=== PATIENT | female | born 1970 | race Caucasian/White ===

== ENCOUNTER 2017-05-11 14:06 | Emergency (ER) | payer BC, OTHER ==
[2017-05-11 14:20] VITALS: BP 162/82
[2017-05-11] MEDS ORDERED: Sodium Chloride 0.9% 10 ML Syringe FLUSH PRN (14:31)
--- NOTE | 2017-05-11 14:33 | EDM.PDOC ---
ED HPI GENERAL MEDICAL PROBLEM - General Chief Complaint: Chest Pain Stated Complaint: CHEST PAIN Time Seen by Provider: 05/11/17 14:12 Source of Information: Reports: Patient History Limitations: Reports: No Limitations - History of Present Illness INITIAL COMMENTS - FREE TEXT/NARRATIVE: The patient presents with chest pain. This stared this morning at 0730. She was not doing anything strenuous. The pain has been there all day. It is a dull ache in the center of her chest. She has some nausea now but no shortness of breath. She has no fever, chills, cough, abdominal pain or vomiting. She has no pain or swelling in her legs. She does smoke but she has no history of diabetes, hypertension or hypercholesterolemia. She does have a family history of chest pain. Onset: Gradual Duration: Hour(s): (since 7:30am) Location: Reports: Chest Quality: Reports: Ache Severity: Mild Improves with: Reports: None Worsens with: Reports: None Context: Reports: Activity Associated Symptoms: Reports: Chest Pain. Denies: Confusion, Cough, Fever/ Chills, Headaches, Nausea/Vomiting, Shortness of Breath Chest Pain Score (Numeric/FACES): 5 - Related Data Allergies Allergy/AdvReac Type Severity Reaction Status Date / Time No Known Allergies Allergy Verified 05/11/17 14:17 Home Meds: Home Meds Diclofenac Sodium [Voltaren] 75 mg PO BID 01/19/15 [History] Multivitamin with Minerals [Multiple Vitamin] 1 tab PO DAILY 01/19/15 [History] Ondansetron [Zofran ODT] 4 mg PO Q12H PRN #8 tab.dis 01/19/15 [Rx] Ranitidine [Zantac] 150 mg PO BID #60 tab 01/19/15 [Rx] Past Medical History - Past Surgical History Other Female Surgeries/Procedures: uterine ablation Social & Family History - Tobacco Use Smoking Status *Q: Unknown Ever Smoked Years of Tobacco use: 20 Packs/Tins Daily: 0.5 - Recreational Drug Use Recreational Drug Use: No ED ROS GENERAL - Review of Systems Review Of Systems: See Below Constitutional: Reports: No Symptoms HEENT: Reports: No Symptoms Respiratory: Reports: No Symptoms Cardiovascular: Reports: Chest Pain Endocrine: Reports: No Symptoms GI/Abdominal: Reports: Nausea. Denies: Abdominal Pain, Vomiting : Reports: No Symptoms Musculoskeletal: Reports: No Symptoms Skin: Reports: No Symptoms Neurological: Reports: No Symptoms ED EXAM, GENERAL - Physical Exam Exam: See Below Exam Limited By: No Limitations General Appearance: Alert, No Apparent Distress Ears: Normal External Exam Nose: Normal Inspection Head: Atraumatic, Normocephalic Neck: Normal Inspection Respiratory/Chest: No Respiratory Distress, Lungs Clear, Normal Breath Sounds Cardiovascular: Regular Rate, Rhythm, No Edema, No Murmur GI/Abdominal: Soft, Non-Tender, No Organomegaly, No Mass Extremities: Normal Inspection Neurological: Alert, Oriented, No Motor/Sensory Deficits Course - Vital Signs Last Recorded V/S: Last Vital Signs Temp 98.8 F 05/11/17 14:17 Pulse 116 H 05/11/17 14:17 Resp 18 05/11/17 14:17 BP 162/82 H 05/11/17 14:17 Pulse Ox 100 05/11/17 14:17 - Orders/Labs/Meds Orders: Active Orders 24 hr Category Date Time Status Cardiac Monitoring [RC] . DIRECTED Care 05/11/17 14:31 Active EKG Documentation Completion [RC] ASDIRECTED Care 05/11/17 16:53 Active EKG Documentation Completion [RC] STAT Care 05/11/17 14:31 Active Peripheral IV Care [RC] . DIRECTED Care 05/11/17 14:31 Active Chest 1V Frontal [CR] Stat Exams 05/11/17 14:31 Taken Sodium Chloride 0.9% [Saline Flush] Med 05/11/17 14:31 Active 10 ml FLUSH ASDIRECTED PRN EKG 12 Lead [EK] Stat Ther 05/11/17 16:52 Ordered Medication Orders Sodium Chloride (Saline Flush) 10 ml FLUSH ASDIRECTED PRN PRN Reason: Keep Vein Open Labs: Laboratory Tests 05/11/17 05/11/17 05/11/17 Range/Units 15:15 15:15 15:15 WBC 11.71 H (3.98-10.04) K/mm3 RBC 5.09 (3.98-5.22) M/mm3 Hgb 14.2 (11.2-15.7) gm/L Hct 41.4 (34.1-44.9) % MCV 81.3 (79.4-94.8) fl MCH 27.9 (25.6-32.2) pg MCHC 34.3 (32.2-35.5) g/dl RDW Std Deviation 41.3 (36.4-46.3) fL Plt Count 315 (182-369) K/mm3 MPV 9.7 (9.4-12.3) fl Neut % (Auto) 76.1 H (34.0-71.1) % Lymph % (Auto) 15.3 L (19.3-51.7) % [place] % (Auto) 7.4 (4.7-12.5) % Eos % (Auto) 0.6 L (0.7-5.8) Baso % (Auto) 0.3 (0.1-1.2) % Neut # (Auto) 8.92 H (1.56-6.13) K/mm3 Lymph # (Auto) 1.79 (1.18-3.74) K/mm3 [place] # (Auto) 0.87 H (0.24-0.36) K/mm3 Eos # (Auto) 0.07 (0.04-0.36) K/mm3 Baso # (Auto) 0.03 (0.01-0.08) K/mm3 D-Dimer, Quantitative 0.32 (0.19-0.59) mg/L Sodium 143 (136-145) mEq/L Potassium 4.3 (3.5-5.1) mEq/L Chloride 107 (98-107) mEq/L Carbon Dioxide 26 (21-32) mEq/L Anion Gap 14.3 (5-15) BUN 11 (7-18) mg/dL Creatinine 0.8 (0.55-1.02) mg/dL Est Cr Clr Drug Dosing 66.31 mL/min Estimated GFR (MDRD) > 60 (>60) mL/min BUN/Creatinine Ratio 13.8 L (14-18) Glucose 107 H (74-106) mg/dL Calcium 9.2 (8.5-10.1) mg/dL Total Bilirubin 0.3 (0.2-1.0) mg/dL AST 17 (15-37) U/L ALT 36 (14-59) U/L Alkaline Phosphatase 99 (46-116) U/L Troponin I < 0.017 (0.00-0.056) ng/mL Total Protein 6.9 (6.4-8.2) g/dl Albumin 3.4 (3.4-5.0) g/dl Globulin 3.5 gm/dL Albumin/Globulin Ratio 1.0 (1-2) 05/11/17 Range/Units 17:23 WBC (3.98-10.04) K/mm3 RBC (3.98-5.22) M/mm3 Hgb (11.2-15.7) gm/L Hct (34.1-44.9) % MCV (79.4-94.8) fl MCH (25.6-32.2) pg MCHC (32.2-35.5) g/dl RDW Std Deviation (36.4-46.3) fL Plt Count (182-369) K/mm3 MPV (9.4-12.3) fl Neut % (Auto) (34.0-71.1) % Lymph % (Auto) (19.3-51.7) % [place] % (Auto) (4.7-12.5) % Eos % (Auto) (0.7-5.8) Baso % (Auto) (0.1-1.2) % Neut # (Auto) (1.56-6.13) K/mm3 Lymph # (Auto) (1.18-3.74) K/mm3 [place] # (Auto) (0.24-0.36) K/mm3 Eos # (Auto) (0.04-0.36) K/mm3 Baso # (Auto) (0.01-0.08) K/mm3 D-Dimer, Quantitative (0.19-0.59) mg/L Sodium (136-145) mEq/L Potassium (3.5-5.1) mEq/L Chloride (98-107) mEq/L Carbon Dioxide (21-32) mEq/L Anion Gap (5-15) BUN (7-18) mg/dL Creatinine (0.55-1.02) mg/dL Est Cr Clr Drug Dosing mL/min Estimated GFR (MDRD) (>60) mL/min BUN/Creatinine Ratio (14-18) Glucose (74-106) mg/dL Calcium (8.5-10.1) mg/dL Total Bilirubin (0.2-1.0) mg/dL AST (15-37) U/L ALT (14-59) U/L Alkaline Phosphatase (46-116) U/L Troponin I < 0.017 (0.00-0.056) ng/mL Total Protein (6.4-8.2) g/dl Albumin (3.4-5.0) g/dl Globulin gm/dL Albumin/Globulin Ratio (1-2) Meds: Medications Generic Name Dose Route Start Last Admin Trade Name Freq PRN Reason Stop Dose Admin Sodium Chloride 10 ml 05/11/17 14:31 Saline Flush FLUSH ASDIRECTED PRN Keep Vein Open Discontinued Medications Generic Name Dose Route Start Last Admin Trade Name Freq PRN Reason Stop Dose Admin Acetaminophen 975 mg 05/11/17 15:19 05/11/17 15:25 Tylenol PO 05/11/17 15:20 975 mg NOW ONE Administration Al Hydroxide/Mg Hydroxide 30 0 ml 05/11/17 16:16 05/11/17 16:32 ml/ Lidocaine HCl 15 ml PO 05/11/17 16:17 45 ml ONETIME ONE Administration Ondansetron HCl 4 mg 05/11/17 16:15 05/11/17 16:22 Zofran Odt PO 05/11/17 16:16 4 mg ONETIME ONE Administration - Re-Assessments/Exams Free Text/Narrative Re-Assessment/Exam: 05/11/17 14:35 I ordered an IV saline lock, CXR, EKG and labs. The patient did take a baby aspirin today. 05/11/17 17:10 Her EKG shows a NSR with no acute changes. Her CXR looks good. Her WBC was slightly elevated at 11.71. Her D-dimer was negative. Her CMP looks good. Her troponin is negative. She feels a little better but she has some nausea and mild chest pain. I wonder if this is GI so I ordered a GI cocktail and some zofran 4mg ODT. I have ordered a repeat EKG that shows a NSR with no acute changes. I will also get a repeat troponin. 05/11/17 18:12 The repeat troponin was negative. I do not think this is cardiac. I will have her follow up with a provider in [facility] and have a stress test scheduled. Departure - Departure Time of Disposition: 18:15 Disposition: Home, Self-Care 01 Condition: Good Clinical Impression: Atypical chest pain Referrals: PCP,None [Primary Care Provider] - Esme Arias MD [Physician] - 3 Days Forms: ED Department Discharge Additional Instructions: Rest tonight. Take tylenol or motrin for pain. Please return if you are worse. Follow up with Dr Arias at our clinic or any other provider in [facility] for follow up. - My Orders Last 24 Hours: My Active Orders 05/11/17 14:31 Cardiac Monitoring [RC] . DIRECTED EKG Documentation Completion [RC] STAT Peripheral IV Care [RC] . DIRECTED Chest 1V Frontal [CR] Stat Sodium Chloride 0.9% [Saline Flush] 10 ml FLUSH ASDIRECTED PRN 05/11/17 16:52 EKG 12 Lead [EK] Stat 05/11/17 16:53 EKG Documentation Completion [RC] ASDIRECTED - Assessment/Plan Last 24 Hours: My Active Orders 05/11/17 14:31 Cardiac Monitoring [RC] . DIRECTED EKG Documentation Completion [RC] STAT Peripheral IV Care [RC] . DIRECTED Chest 1V Frontal [CR] Stat Sodium Chloride 0.9% [Saline Flush] 10 ml FLUSH ASDIRECTED PRN 05/11/17 16:52 EKG 12 Lead [EK] Stat 05/11/17 16:53 EKG Documentation Completion [RC] ASDIRECTED
[2017-05-11] MEDS ORDERED: Acetaminophen 325 MG Tab PO ONE (15:19)
[2017-05-11] MEDS ORDERED: Ondansetron 4 MG Tab.DIS PO ONE (16:15)
[2017-05-11] MEDS ORDERED: Alum Hydrox/Mag Hydrox/Simeth 30 ML, Lidocaine 2% 15 ML PO ONE ×2 (16:16)
--- NOTE | 2017-05-12 08:42 | CR ---
Chest: Portable view of the chest was obtained. Comparison: Prior chest x-ray of 01/19/15. Heart size is enlarged but felt accentuated from portable technique. Upper mediastinum is within normal limits. Lungs are clear. Bony structures are grossly intact. Impression: 1. Nothing acute is identified on portable chest x-ray. Diagnostic code #1
== END 2017-05-11 18:23 | disposition home or self-care (01) ==
LOC: JD.ED 14:06
DX: R07.89 Other chest pain (principal); F17.210 Nicotine dependence, cigarettes, uncomplicated
CPT/HCPCS: 36415; 71045; 80053; 84484; 85025; 85379; 93005; 99285; A9270; 93010

== ENCOUNTER 2017-12-24 12:07 | Emergency (ER) | payer BC ==
--- NOTE | 2017-12-24 13:56 | EDM.PDOC ---
ED HPI GENERAL MEDICAL PROBLEM - General Chief Complaint: Neurological Problem Stated Complaint: DIZZYNESS Time Seen by Provider: 12/24/17 13:35 Source of Information: Reports: Patient History Limitations: Reports: No Limitations - History of Present Illness INITIAL COMMENTS - FREE TEXT/NARRATIVE: 47-year-old female with no significant past medical history presenting with a chief complaint of dizziness, nausea and fatigue. Patient states she noted onset of the symptoms yesterday in the evening after she went home from work. She describes feeling dizzy but is unable to further qualify this as the room spinning around her or is feeling like she is going to pass out. She had no associated chest pain shortness of breath headache or visual changes. Today upon awakening the patient still felt generally not well with some nausea and intermittent "dizziness". Patient has no history of CVA or TIA. No significant cardiac history. Denies any associated palpitations. Of note she did say that coworker had almost identical symptoms today. Associated Symptoms: Reports: No Other Symptoms - Related Data Allergies Allergy/AdvReac Type Severity Reaction Status Date / Time levofloxacin [From Levaquin] Allergy Rash Verified 12/24/17 12:19 metronidazole [From Flagyl] Allergy Rash Verified 12/24/17 12:19 Home Meds: Home Meds Multivitamin with Minerals [Multiple Vitamin] 1 tab PO DAILY 01/19/15 [History] Omeprazole 20 mg PO DAILY 12/24/17 [History] Past Medical History - Past Health History Medical/Surgical History: Denies Medical/Surgical History Gastrointestinal History: Reports: Diverticulosis, GERD - Past Surgical History GI Surgical History: Reports: Colonoscopy Female Surgical History: Reports: Section, Tubal Ligation, Other ( See Below) Other Female Surgeries/Procedures: uterine ablation Social & Family History - Tobacco Use Smoking Status *Q: Former Smoker Used Tobacco, but Quit: Yes Month/Year Tobacco Last Used: 2014 - Caffeine Use Caffeine Use: Reports: None - Recreational Drug Use Recreational Drug Use: No ED ROS GENERAL - Review of Systems Review Of Systems: See Below Constitutional: Reports: No Symptoms HEENT: Reports: No Symptoms Respiratory: Reports: No Symptoms Cardiovascular: Reports: No Symptoms Endocrine: Reports: No Symptoms GI/Abdominal: Reports: Nausea : Reports: No Symptoms Musculoskeletal: Reports: No Symptoms Skin: Reports: No Symptoms Neurological: Reports: Dizziness Psychiatric: Reports: No Symptoms Hematologic/Lymphatic: Reports: No Symptoms Immunologic: Reports: No Symptoms ED EXAM, NEURO - Physical Exam Exam: See Below Exam Limited By: No Limitations General Appearance: Alert, No Apparent Distress Ears: Normal External Exam, Hearing Grossly Normal, Normal TMs Nose: Normal Inspection, Normal Mucosa, No Blood Throat/Mouth: Normal Inspection, Normal Lips, Normal Oropharynx, Normal Voice, No Airway Compromise Head Exam: Atraumatic, Normocephalic Neck: Normal Inspection, Supple, Non-Tender, Full Range of Motion Respiratory/Chest: No Respiratory Distress, Lungs Clear, Normal Breath Sounds, No Accessory Muscle Use, Chest Non-Tender Cardiovascular: Normal Peripheral Pulses, Regular Rate, Rhythm, No Edema, No Gallop, No JVD, No Murmur, No Rub GI/Abdominal: Normal Bowel Sounds, Soft, Non-Tender, No Organomegaly, No Distention Neurological: Alert, Normal Mood/Affect, Normal Dorsiflexion, CN II-XII Intact, Normal Plantar Flexion, Normal Gait, Normal Reflexes, No Motor/Sensory Deficits , Oriented x 3, Other (Head impulse test: loss of fixation with corrective saccades when head turned to the right) Back Exam: Normal Inspection, Full Range of Motion, NT Extremities: Normal Inspection, Normal Range of Motion, Non-Tender, No Pedal Edema, Normal Capillary Refill Psychiatric: Normal Affect, Normal Mood Skin Exam: Warm, Dry, Intact, Normal Color, No Rash Course - Vital Signs Last Recorded V/S: Last Vital Signs Temp 36.7 C 12/24/17 16:21 Pulse 78 12/24/17 16:21 Resp 20 12/24/17 16:21 BP 125/76 12/24/17 16:21 Pulse Ox 98 12/24/17 12:16 - Orders/Labs/Meds Labs: Laboratory Tests 12/24/17 12/24/17 Range/Units 13:05 13:05 WBC 8.79 (3.98-10.04) K/mm3 RBC 5.23 H (3.98-5.22) M/mm3 Hgb 14.4 (11.2-15.7) gm/L Hct 42.4 (34.1-44.9) % MCV 81.1 (79.4-94.8) fl MCH 27.5 (25.6-32.2) pg MCHC 34.0 (32.2-35.5) g/dl RDW Std Deviation 41.9 (36.4-46.3) fL Plt Count 302 (182-369) K/mm3 MPV 9.6 (9.4-12.3) fl Neut % (Auto) 75.0 H (34.0-71.1) % Lymph % (Auto) 17.0 L (19.3-51.7) % [place] % (Auto) 7.4 (4.7-12.5) % Eos % (Auto) 0.3 L (0.7-5.8) Baso % (Auto) 0.2 (0.1-1.2) % Neut # (Auto) 6.59 H (1.56-6.13) K/mm3 Lymph # (Auto) 1.49 (1.18-3.74) K/mm3 [place] # (Auto) 0.65 H (0.24-0.36) K/mm3 Eos # (Auto) 0.03 L (0.04-0.36) K/mm3 Baso # (Auto) 0.02 (0.01-0.08) K/mm3 Sodium 140 (136-145) mEq/L Potassium 3.8 (3.5-5.1) mEq/L Chloride 107 (98-107) mEq/L Carbon Dioxide 25 (21-32) mEq/L Anion Gap 11.8 (5-15) BUN 7 (7-18) mg/dL Creatinine 0.8 (0.55-1.02) mg/dL Est Cr Clr Drug Dosing 65.60 mL/min Estimated GFR (MDRD) > 60 (>60) mL/min BUN/Creatinine Ratio 8.8 L (14-18) Glucose 103 (74-106) mg/dL Calcium 8.7 (8.5-10.1) mg/dL Magnesium 1.9 (1.8-2.4) mg/dl Total Bilirubin 0.6 (0.2-1.0) mg/dL AST 19 (15-37) U/L ALT 28 (14-59) U/L Alkaline Phosphatase 105 (46-116) U/L Troponin I < 0.017 (0.00-0.056) ng/mL C-Reactive Protein 1.6 H* (<1.0) mg/dL Total Protein 7.1 (6.4-8.2) g/dl Albumin 3.4 (3.4-5.0) g/dl Globulin 3.7 gm/dL Albumin/Globulin Ratio 0.9 L (1-2) - Re-Assessments/Exams Free Text/Narrative Re-Assessment/Exam: 12/24/17 22:48 Differential diagnosis viral syndrome, dehydration, likely abnormality, CVA highly unlikely, TIA unlikely, benign positional peripheral vertigo 47-year-old female presenting with chief complaints of fatigue malaise dizziness and nausea. Patient's symptoms started yesterday evening. She woke this morning continued to have dizziness and was tired and nauseous. Coworkers had similar symptoms as well. Patient denies any symptoms that are suggestive of CVAs his visual changes had a care focal neurologic symptoms. I have low suspicion for a posterior circulation stroke with a HINTS exam that is not suggestive of such. EKG is normal no sign of arrhythmia or ischemia. Labs are normal as well. At this time patient is safe for discharge home. She is given strict return precautions for any signs or symptoms suggestive of ACS or stroke. Patient voices her understanding and all questions were answered. Departure - Departure Time of Disposition: 16:07 Disposition: Home, Self-Care 01 Condition: Fair Clinical Impression: Dizziness - Discharge Information *PRESCRIPTION DRUG MONITORING PROGRAM REVIEWED*: Not Applicable *COPY OF PRESCRIPTION DRUG MONITORING REPORT IN PATIENT JULIANNA: Not Applicable Instructions: Dizziness, [id number] Referrals: Taylor Bartlett PROJECTION PRINTER [Primary Care Provider] - Forms: ED Department Discharge Additional Instructions: You were seen and evaluated in the emergency department today for dizziness. Today there is no evidence for a neurologic emergency such as stroke. Your labs are normal. At this time I feel it is safe for you to go home. I'd like you to follow up as closely as possible with your primary care provider. At any time if you have symptoms that are new or worsening that are suggestive of a stroke such as facial droop, slurred speech or weakness on one side of your body please call 911 and present to the emergency department as soon as possible.
[2017-12-24 16:21] VITALS: BP 125/76
== END 2017-12-24 16:23 | disposition home or self-care (01) ==
LOC: JD.ED 12:07
DX: R42 Dizziness and giddiness (principal); Z88.1 Allergy status to other antibiotic agents; Z88.8 Allergy status to other drugs, medicaments and biological substances; Z87.891 Personal history of nicotine dependence; Z79.899 Other long term (current) drug therapy
CPT/HCPCS: 36415; 80053; 83735; 84484; 85025; 86140; 93005; 99284-25